=== PATIENT | male | born 2000 | race Caucasian/White ===

== ENCOUNTER 2018-06-22 16:51 | Emergency (ER) | payer OTHER ==
[2018-06-22 17:02] VITALS: BP 109/43; PULSE 85; RESP 16; TEMP 97.8
[2018-06-22] MEDS ORDERED: PROPARACAINE 0.5% OPHTH DROPS 15 ML BTL LEFT EYE STA (17:27)
--- NOTE | 2018-06-22 17:33 | ED ---
Eye Problem HPI - General Chief complaint: Eye Problems Stated complaint: [employer]-Met[employer] in Eye Time Seen by Provider: 06/22/18 17:06 Source: patient Mode of arrival: ambulatory Limitations: no limitations - History of Present Illness Initial comments: 17-year-old male patient presents to the emergency department today for evaluation of irritation to the left eye. Patient states he is at work on 3:30 this afternoon when a piece of metal flew into his eye. Patient states that he did flush the eye but still feels irritated. Patient denies any blurred or double vision. Denies any drainage from the eye. Patient denies any headache, neck pain, back pain, chest pain, shortness of breath, dizziness, weakness, abdominal pain, nausea, vomiting, or difficulties with bowel movements or urination. - Related Data Home Medications Medication Instructions Recorded Confirmed No Known Home Medications 06/22/18 06/22/18 Allergies Allergy/AdvReac Type Severity Reaction Status Date / Time No Known Allergies Allergy Verified 06/22/18 17:13 Review of Systems ROS Statement: Those systems with pertinent positive or pertinent negative responses have been documented in the HPI. ROS Other: All systems not noted in ROS Statement are negative. Past Medical History Past Medical History: Asthma History of Any Multi-Drug Resistant Organisms: None Reported Additional Past Surgical History / Comment(s): tongue, nose, testicle Past Psychological History: No Psychological Hx Reported Smoking Status: Current every day smoker Past Alcohol Use History: None Reported Past Drug Use History: None Reported General Exam Limitations: no limitations General appearance: alert, in no apparent distress, other (Physical well- developed, well-nourished adult male patient in no acute distress. Vital signs upon presentation are temperature 97.8F, pulse 85, respirations 16, blood pressure 109/43, pulse ox 98% on room air.) Eye exam: Present: normal appearance, PERRL, EOMI, other (Fluorescein stain with Wood's lamp examination was performed and showed no evidence of injury to the eye. No corneal abrasion noted. No evidence of foreign body noted with lid eversion. No current conjunctival injection or drainage noted.). Absent: scleral icterus, conjunctival injection, periorbital swelling ENT exam: Present: normal exam, normal oropharynx, mucous membranes moist Cardiovascular Exam: Present: regular rate, normal rhythm, normal heart sounds. Absent: systolic murmur, diastolic murmur, rubs, gallop, clicks GI/Abdominal exam: Present: soft, normal bowel sounds. Absent: distended, tenderness, guarding, rebound, rigid Neurological exam: Present: alert, oriented X3, CN II-XII intact Psychiatric exam: Present: normal affect, normal mood Skin exam: Present: warm, dry, intact, normal color. Absent: rash Course Vital Signs 06/22/18 17:00 Temperature 97.8 F Pulse Rate 85 Respiratory 16 Rate Blood Pressure 109/43 O2 Sat by Pulse 98 Oximetry Medical Decision Making - Medical Decision Making 17-year-old male patient presented to the emergency department today for evaluation of left eye irritation. Patient was at work when he got a piece of metal flew into his eye. He did flush the eye at work. Physical examination is relatively unremarkable. Did perform fluorescein stain with Wood's lamp examination see no evidence of injury to the eye. Did luca both lids, no evidence of foreign body. He has no visual disturbance. We did discuss the possibility of a conjunctival abrasion. He'll be given tobramycin ointment to use 4 times daily. Is instructed follow up with throw out clerk if his symptoms aren't improved over the next 1-2 days. Return parameters were discussed in detail. He verbalizes understanding and agrees with this plan. Disposition Clinical Impression: Conjunctival abrasion Disposition: HOME SELF-CARE Condition: Good Instructions (If sedation given, give patient instructions): Tobramycin (Into the eye), Corneal Abrasion (ED) Additional Instructions: Use ointment to the left eye, 1cm ribbon to lower lid four times daily while awake. Follow up with the throw out clerk for recheck in 1-2 days if symptoms aren't improved. Return to the emergency department immediately for any new, worsening, or concerning symptoms. Is patient prescribed a controlled substance at d/c from ED?: No Referrals: John Guevara MD [STAFF PHYSICIAN] - 1-2 days Time of Disposition: 17:47
[2018-06-22] MEDS ORDERED: TOBRAMYCIN 0.3% OPHTH OINT 3.5 GM TUBE LEFT EYE STA (17:45)
== END 2018-06-22 18:37 | disposition home or self-care (01) ==
LOC: EC 16:51
DX: S05.02XA Injury of conjunctiva and corneal abrasion without foreign body, left eye, initial encounter (principal); F17.200 Nicotine dependence, unspecified, uncomplicated; W22.8XXA Striking against or struck by other objects, initial encounter; Y92.69 Other specified industrial and construction area as the place of occurrence of the external cause; Y99.0 Civilian activity done for income or pay
CPT/HCPCS: 99283

== ENCOUNTER 2018-06-25 18:37 | Emergency (ER) | payer OTHER ==
[2018-06-25] MEDS ORDERED: SODIUM CHLORIDE 0.9% 500 ML 500 ML IV STA (19:43)
[2018-06-25] MEDS ORDERED: KETOROLAC 30 MG/ML 1 ML VIAL IVP STA (19:43)
[2018-06-25] MEDS ORDERED: ACETAMINOPHEN TAB 325 MG TAB PO STA (19:43)
[2018-06-25 19:50] VITALS: TEMP 99.4
--- NOTE | 2018-06-25 20:13 | ED ---
Chest Pain HPI - General Chief Complaint: Chest Pain Stated Complaint: CP Time Seen by Provider: 06/25/18 19:04 Source: patient Mode of arrival: ambulatory Limitations: no limitations - History of Present Illness Initial Comments: 17-year-old male patient presents to the emergency department today for evaluation of left-sided chest pain and racing heart. Patient states symptoms started about an hour and a half ago. Patient states he was just sitting on the couch when symptoms started. He states he has been coughing. Denies any shortness of breath or sputum production with this. Denies any fevers or chills. Denies any history of similar symptoms. Denies any history of anxiety, drug use, alcohol use. Denies any new medications. Patient denies any recent rash, abdominal pain, nausea, vomiting, diarrhea, constipation, back pain, numbness, tingling, dizziness, weakness, hematuria, dysuria, urinary urgency, urinary frequency, headache, visual changes, or any other complaints. - Related Data Home Medications Medication Instructions Recorded Confirmed No Known Home Medications 06/22/18 06/22/18 Allergies Allergy/AdvReac Type Severity Reaction Status Date / Time No Known Allergies Allergy Verified 06/25/18 19:01 Review of Systems ROS Statement: Those systems with pertinent positive or pertinent negative responses have been documented in the HPI. ROS Other: All systems not noted in ROS Statement are negative. EKG Findings - EKG Comments: EKG Findings:: EKG obtained at 2002 shows sinus tachycardia with ventricular rate of 104, P return of a 148, QRS duration 92, QT 320, QTC 420. No evidence of ST elevation or depression. Past Medical History Past Medical History: Asthma History of Any Multi-Drug Resistant Organisms: None Reported Past Surgical History: No Surgical Hx Reported Additional Past Surgical History / Comment(s): tongue, nose, testicle Past Psychological History: No Psychological Hx Reported Smoking Status: Former smoker Past Alcohol Use History: None Reported Past Drug Use History: None Reported General Exam Limitations: no limitations General appearance: alert, in no apparent distress, other (Physical well- developed, well-nourished adult male patient in no acute distress. Vital signs upon presentation are temperature 97.8F, pulse 124, respirations 18, blood pressure 120/64, pulse ox 99% on room air.) Eye exam: Present: normal appearance, PERRL, EOMI. Absent: scleral icterus, conjunctival injection, periorbital swelling ENT exam: Present: normal exam, normal oropharynx, mucous membranes moist Respiratory exam: Present: normal lung sounds bilaterally. Absent: respiratory distress, wheezes, rales, rhonchi, stridor, chest wall tenderness Cardiovascular Exam: Present: regular rate, normal rhythm, normal heart sounds. Absent: systolic murmur, diastolic murmur, rubs, gallop, clicks GI/Abdominal exam: Present: soft, normal bowel sounds. Absent: distended, tenderness, guarding, rebound, rigid Neurological exam: Present: alert, oriented X3, CN II-XII intact Psychiatric exam: Present: normal affect, normal mood Skin exam: Present: warm, dry, intact, normal color. Absent: rash Course Vital Signs 06/25/18 06/25/18 06/25/18 18:58 19:50 20:30 Temperature 97.8 F 99.4 F Pulse Rate 124 H 102 H Respiratory 18 18 Rate Blood Pressure 120/64 124/69 O2 Sat by Pulse 99 98 Oximetry 06/25/18 06/25/18 21:00 21:30 Temperature Pulse Rate 114 H 109 H Respiratory 16 16 Rate Blood Pressure 120/60 114/66 O2 Sat by Pulse Oximetry Chest Pain [facility] RADIOLOGY: Two-view x-ray of the chest is obtained. Report was reviewed in its entirety. Impression by Dr. Beth shows no acute cardiopulmonary process. MDM: 17-year-old male patient presents to the emergency department today for evaluation of chest pain and racing heart. Physical examination does reveal tachycardia with normal heart sounds. Labs reviewed and are unremarkable. Chest x-ray showed no acute cardio pulmonary process. Upon reevaluation patient does report complete resolution of chest pain. I did discuss findings and results with him. He is instructed follow with his primary care physician for further evaluation of the tachycardia. Return parameters were discussed in detail. He verbalizes understanding and agrees with this plan. Disposition Clinical Impression: Chest pain, Sinus tachycardia Disposition: HOME SELF-CARE Condition: Good Instructions (If sedation given, give patient instructions): Chest Pain (ED), Tachycardia (ED) Additional Instructions: Increase fluids. Take Tylenol Motrin for pain and fever control. Follow-up th [facility] primary care physician to discuss further testing in relation to elevated heart rate. Return to the emergency department immediately for any new, worsening, or concerning symptoms. Is patient prescribed a controlled substance at d/c from ED?: No Referrals: None,Stated [Primary Care Provider] - 1-2 days Time of Disposition: 21:42
--- NOTE | 2018-06-25 20:29 | XR ---
EXAMINATION TYPE: XR chest 2V DATE OF EXAM: 06/25/2018 COMPARISON: 01/01/2008 HISTORY: Chest pain. TECHNIQUE: Frontal and lateral views of the chest are obtained. FINDINGS: There is no focal air space opacity, pleural effusion, or pneumothorax seen. The cardiac silhouette size is within normal limits. The osseous structures are intact. IMPRESSION: No acute cardiopulmonary process.
[2018-06-25 20:35] LABS: Basophils % (A) 0 %; Eosinophils # (A) 0.4 k/uL (0-0.7); Eosinophils % (A) 5 %; HCT 48.1 % (39.0-53.0); HGB 16.6 gm/dL (13.0-17.5); Lymphocytes # (A) 1.5 k/uL (1.0-4.8); Lymphocytes % (A) 18 %; MCH 30.6 pg (25.0-35.0); MCHC 34.4 g/dL (31.0-37.0); MCV 88.8 fL (80.0-100.0); Monocytes # (A) 0.9 k/uL (0-1.0); Monocytes % (A) 11 %; Neutrophils # (A) 5.2 k/uL (1.3-7.7); Neutrophils % (A) 64 %; Platelet Count 248 k/uL (150-450); RBC 5.42 m/uL (4.30-5.90); RDW 13.1 % (11.5-15.5); WBC 8.1 k/uL (4.0-11.0)
[2018-06-25 20:44] LABS: ALT 28 U/L (21-72); AST 20 U/L (17-59); Albumin 4.7 g/dL (3.5-5.0); Alkaline Phosphatase 60 U/L (38-126); Anion Gap 10 mmol/L; Blood Urea Nitrogen 13 mg/dL (9-20); Calcium 9.6 mg/dL (8.4-10.2); Carbon Dioxide 28 mmol/L (22-30); Chloride 101 mmol/L (98-107); Glucose 87 mg/dL (74-99); Magnesium 1.8 mg/dL (1.6-2.3); Partial Thromboplastin Time 26.6 sec (22.0-30.0); Potassium 4.3 mmol/L (3.5-5.1); Prothrombin Time 10.5 sec (9.0-12.0); Sodium 139 mmol/L (137-145); Total Bilirubin 0.7 mg/dL (0.2-1.3); Total Protein 7.3 g/dL (6.3-8.2)
[2018-06-25 21:50] VITALS: BP 114/66; PULSE 109; RESP 16
== END 2018-06-25 21:50 | disposition home or self-care (01) ==
LOC: EC 18:37
DX: R07.9 Chest pain, unspecified (principal); R00.0 Tachycardia, unspecified; R05 Cough; Z87.891 Personal history of nicotine dependence
CPT/HCPCS: 36415; 93005; 80053; 84443; 83735; 84484; 85025; 85610; 85730; 71046; 99285; 96374; 96361; J1885

== ENCOUNTER 2020-05-27 11:21 | Emergency (ER) | payer BC ==
[2020-05-27 11:37] VITALS: BP 125/77; PULSE 88; RESP 18; TEMP 98.3
--- NOTE | 2020-05-27 11:54 | ED ---
ENT HPI - General Chief complaint: ENT Stated complaint: rt ear hearing loss Time Seen by Provider: 05/27/20 11:38 Source: patient Mode of arrival: ambulatory Limitations: no limitations - History of Present Illness Initial comments: 19-year-old male presenting today for chief complaint of right sided hearing loss. Patient states that he was using a Q-tip to clean his ears he felt like he went to foreign body almost popped it he states that he had some pain and some ringing in his ears. Patient states he took a hot shower earlier that day and he felt a strong pain in that his hearing when silent he states the pain has significantly improved. He denies any dizziness headaches or fevers or additional complaints patient has noted additional concerns he states he just can still not hear very well and has some slight buzzing. - Related Data Previous Rx's Medication Instructions Recorded Amoxicillin 500 mg PO Q8H 7 Days #21 capsule 05/27/20 Ofloxacin 0.3% Otic Soln [Floxin 5 drops RIGHT EAR BID 7 Days #30 ml 05/27/20 0.3% Otic Soln] Allergies Allergy/AdvReac Type Severity Reaction Status Date / Time No Known Allergies Allergy Verified 05/27/20 11:37 Review of Systems ROS Statement: Those systems with pertinent positive or pertinent negative responses have been documented in the HPI. ROS Other: All systems not noted in ROS Statement are negative. Past Medical History Past Medical History: Asthma History of Any Multi-Drug Resistant Organisms: None Reported Past Surgical History: No Surgical Hx Reported Additional Past Surgical History / Comment(s): tongue, nose, testicle Past Psychological History: No Psychological Hx Reported Smoking Status: Never smoker Past Alcohol Use History: None Reported Past Drug Use History: None Reported General Exam - General Exam Comments Initial Comments: General: The patient is awake and alert, in no distress, and does not appear acutely ill. Eye: Pupils are equal, round and reactive to light, extra-ocular movements are intact. No nystagmus. There is normal conjunctiva bilaterally. No signs of icterus. Ears, nose, mouth and throat: There are moist mucous membranes and no oral lesions. Ruptured right TM with serum and soem redness of EAC. Musculoskeletal: Normal ROM, no tenderness. Strength 5/5. Sensation intact. Pulses equal bilaterally 2+. Neurological: A&O x 3. CN II-XII intact, There are no obvious motor or sensory deficits. Coordination appears grossly intact. Speech is normal. Skin: Skin is warm and dry and no rashes or lesions are noted. Psychiatric: Cooperative, appropriate mood & affect, normal judgment. Limitations: no limitations Course Vital Signs 05/27/20 11:35 Temperature 98.3 F Pulse Rate 88 Respiratory 18 Rate Blood Pressure 125/77 O2 Sat by Pulse 98 Oximetry Medical Decision Making - Medical Decision Making 19yo presenting for right ear hearing loss. TM rupture on exam. some redness of eac. pt evaluated by attending who is agreeable to oral and topical fluoroquinolones for treatment and ENT f/u. patient agreeable to this care plan and discharge. avoidance of swimming/submerging self/water in ear discussed. Patient discharged appearing well. Disposition Clinical Impression: Ruptured tympanic membrane Disposition: HOME SELF-CARE Condition: Good Instructions (If sedation given, give patient instructions): Ruptured Eardrum (ED) Prescriptions: Amoxicillin 500 mg PO Q8H 7 Days #21 capsule Ofloxacin 0.3% Otic Soln [Floxin 0.3% Otic Soln] 5 drops RIGHT EAR BID 7 Days #30 ml Is patient prescribed a controlled substance at d/c from ED?: No Referrals: None,Stated [Primary Care Provider] - 1-2 days Nolan Mcwilliams DO [Doctor of Osteopathic Medicine] - 1-2 days Time of Disposition: 11:53
== END 2020-05-27 12:03 | disposition home or self-care (01) ==
LOC: EC 11:21
DX: H72.91 Unspecified perforation of tympanic membrane, right ear (principal); J45.909 Unspecified asthma, uncomplicated

== ENCOUNTER → 2020-09-20 | Outpatient (CLI) | payer BC | END | disposition home or self-care (01) | LOC: LABWHC1 13:11 | PROVIDERS: ATTEND Pathology Anatomic Pathology & Clinical Pathology | DX: Z53.9 Procedure and treatment not carried out, unspecified reason (principal) | CPT/HCPCS: 36415 ==